=== PATIENT | male | born 1995 | race Caucasian/White ===

== ENCOUNTER 2024-07-27 16:33 | Emergency (ER) | payer BC, SELFPAY ==
[2024-07-27 17:10] VITALS: BP 136/86; PULSE 94; RESP 20; TEMP 37.6; O2SAT 100
--- NOTE | 2024-07-27 17:20 | ED_ITS ---
HPI - URI/Sore Throat General Chief Complaint: Upper Respiratory Infection Stated Complaint: Cough/Sore Throat Source: patient, RN notes reviewed and old records reviewed Mode of arrival: ambulatory Limitations: no limitations History of Present Illness HPI Narrative: Patient presents with 3-4 week history of sinus pain and pressure, postnasal drainage. He reports over the past week he feels as though symptoms are settling into his chest. He reports that he now has productive cough. He denies fevers, but does report some occasional chills and sweats. He does state that he has less energy than normal. Denies any shortness of breath, but does complain of occasional wheezing. No other concerns or complaints today Related Data Home Medications ?Medication ?Instructions ?Recorded ?Confirmed ?Last Taken ?Type estradiol valerate 20 mg/mL mg IM 01/07/24 01/07/24 Unknown History intramuscular oil syringe with needle 3 mL 25 gauge #1 ea 01/07/24 07/27/24 Unknown History x 1 (BD Luer-Elsy Syringe) Allergies Allergy/AdvReac Type Severity Reaction Status Date / Time amoxicillin Allergy Unknown Unknown Verified 07/27/24 17:50 Review of Systems Review of Systems: All systems reviewed & are unremarkable except as noted in HPI and below Constitutional: Constitutional: Reports no additional constitutional complaints ENT: Reports system reviewed and no additional complaints, except as documented, Reports nasal congestion, Reports nasal discharge, Reports sinus pain, Reports sinus pressure and Reports sore throat Cardiovascular: Cardiovascular: Reports no additional cardiovascular complaints Respiratory: Respiratory: Reports no additional respiratory complaints, Reports chest congestion, Reports cough, Reports excessive phlegm production and Reports wheezing Gastrointestinal: Gastrointestinal: Reports no additional gastrointestinal complaints [facility] Past Medical History Medical History Obesity (BMI 35.0-39.9 without comorbidity) Depression Attention-deficit hyperactivity disorder, unspecified type Surgical History Surgical History [place] teeth extracted Social History Social History Smoking status: Never smoker Alcohol intake: never Lack of Transportation: No Lack of Food: Never True Current Housing: I Have Housing Concerned About Future Housing: No Difficulty Paying Gas/Electric Bills: No Difficulty Paying for Meds: YES Currently Unemployed: No Education: High School Diploma/GED Difficulty w/ Childcare or Family Care: No Comments At the time of my signature, I reviewed and agree with the nursing past medical, surgical, social, and family history. There is no relevant family history pertinent to the patient complaint. Exam Const: General: cooperative, no acute distress, alert and awake Orientation/consciousness: oriented to person, oriented to place and oriented to time HENMT: Head: normal to inspection Ears: Abnormal EAC present cerumen impaction bilateral Face and sinus: sinus tenderness maxillary Mouth: Yes moist mucous membranes Throat: posterior oropharynx abnormal erythema Resp: Effort & Inspection: normal respiratory effort and able to speak in complete sentences Auscultation: clear to auscultation bilaterally, no crackles, no rales, no rhonchi and no wheezes Cardio: Palpation: normal PMI Rate: regular rate Rhythm: regular rhythm Heart sounds: S1 normal heart sound present and S2 normal heart sound present Neuro: General: oriented to person, oriented to place and oriented to time Cranial nerves: Yes CN's II-XII intact bilaterally Psych: Appearance: grossly normal Thought process: Normal thought process present Insight: Good insight present (Psych) Judgement: Good judgement p resent (Psych) Course Course Level of Care: Express Care Visit Vital Signs Vital signs: Vital Signs Temperature 99.6 F 07/27/24 17:10 Pulse Rate 94 07/27/24 17:10 Respiratory Rate 20 07/27/24 17:10 Blood Pressure 136/86 07/27/24 17:10 Pulse Oximetry 100 07/27/24 17:10 Temperature 99.6 F 07/27/24 17:10 Pulse Rate 94 07/27/24 17:10 Respiratory Rate 20 07/27/24 17:10 Blood Pressure 136/86 07/27/24 17:10 Pulse Oximetry 100 07/27/24 17:10 Reviewed MDM - URI/Sore Throat MDM Narrative Medical decision making narrative: Penicillin allergic patient with exam consistent with sinusitis. Complains of some wheezing at home, no wheezing on exam today. Patient is nontoxic appearing, stable for discharge home on p.o. antibiotic therapy, steroid burst, inhaler. Discharge instructions reviewed with patient, as well as provided in writing per nursing staff. The instructions also include specific and strict return/GO TO THE ER as well as f/u information. All questions have been answered, and the patient deny any further questions with discharge and discharge plan. Some parts of this dictation were generated by voice recognition software and may contain typographical and/or grammatical inaccuracies. Differential Diagnosis Differential diagnosis: Likely upper respiratory infection, otitis media, sinusitis, bronchitis, influenza and pharyngitis Medical Records Attestation: I reviewed the patient's medical records. Lab Data Labs: Lab Results 07/27/24 Range/Units 17:10 POC Grp A Strep Screen Negative (Negative) Discharge Plan Discharge Clinical Impression: Sinusitis, Cerumen impaction Patient Disposition: Home, Self-Care Condition: Stable Instructions: Antibiotic Form, Sinusitis (ED) Additional Instructions: Take medications as prescribed. Follow with primary care provider. Emergency department for new or worse symptoms Patient Language: Welsh Prescriptions: New doxycycline hyclate 100 mg capsule 100 mg PO BID Qty: 14 0RF prednisone 50 mg tablet 50 mg PO DAILY Qty: 5 0RF albuterol sulfate [Ventolin HFA] 90 mcg/actuation HFA aerosol inhaler 2 puff inhalation QID PRN (Reason: shortness of breath or wheezing) Qty: 8.5 0RF Debrox 6.5 % drops 5 drp EACH EAR Q12H 4 Days Qty: 15 0RF doxycycline hyclate 100 mg capsule 100 mg PO BID Qty: 14 0RF prednisone 50 mg tablet 50 mg PO DAILY Qty: 5 0RF albuterol sulfate [Ventolin HFA] 90 mcg/actuation HFA aerosol inhaler 2 puff inhalation QID PRN (Reason: shortness of breath or wheezing) Qty: 8.5 0RF Debrox 6.5 % drops 5 drp EACH EAR Q12H 4 Days Qty: 15 0RF No Action estradiol valerate 20 mg/mL oil IM (DME) BD Luer-Elsy Syringe 3 mL 25 gauge x 1 syringe See Rx Instructions .ROUTE .MEDSUPPLY Qty: 1 Rx Instructions: As directed bupropion HCl [Wellbutrin XL] 300 mg tablet extended release 24 hr 300 mg PO QAM Qty: 90 1RF buspirone 10 mg tablet 10 mg PO TID Qty: 270 1RF trazodone 150 mg tablet 150 mg PO QHS PRN (Reason: insomnia) Qty: 90 1RF lisdexamfetamine [Vyvanse] 40 mg capsule 40 mg PO QAM Qty: 30 0RF Rx Instructions: Fill in July lisdexamfetamine [Vyvanse] 40 mg capsule 40 mg PO DAILY Qty: 30 0RF Rx Instructions: Fill in August lisdexamfetamine [Vyvanse] 40 mg capsule 40 mg PO DAILY Qty: 30 0RF Rx Instructions: Fill in September Follow-up/Referrals: Paul Silva MD [Primary Care Provider] - 2 Weeks Time of Disposition: 17:32
[2024-07-27 20:33] LABS: EDSTREPNEGPOS1 Negative (Negative)
== END 2024-07-27 17:45 | disposition home or self-care (01) ==
PROVIDERS: Emergency Provider Nurse Practitioner Family; PCP Family Medicine
DX: J32.9 Chronic sinusitis, unspecified (principal); H61.23 Impacted cerumen, bilateral; E66.9 Obesity, unspecified; Z68.41 Body mass index [BMI] 40.0-44.9, adult
CPT/HCPCS: 87081; 87880; 99213; G0463